=== PATIENT | female | born 1985 | race Two or more races ===

== ENCOUNTER 2018-04-21 16:16 | Emergency (ER) | payer BC ==
[~2018-04-21] VITALS: Ht 172.7 cm; Wt 108.9 kg
[2018-04-21] MEDS ORDERED: IRBE300T19 PO (16:30)
[2018-04-21] MEDS ORDERED: AMLO2.5T2 PO (16:30)
[2018-04-21] MEDS ORDERED: CITA10TA9 PO (16:31)
[2018-04-21] MEDS ORDERED: CHLO25TA2 PO (16:31)
[2018-04-21 16:53] LABS: BASOPHILS # (AUTO) 0.1 K/uL (0.0-8.0); BASOPHILS % (AUTO) 0.8 % (0.0-2.0); EOSINOPHILS # (AUTO) 0.1 K/uL (0.0-0.7); EOSINOPHILS % (AUTO) 1.4 % (0.0-7.0); HEMATOCRIT 42.3 % (31.2-41.9); LYMPHOCYTES # (AUTO) 2.1 K/uL (20.0-40.0); LYMPHOCYTES % (AUTO) 25.1 % (20.5-51.5); MEAN CORPUSCULAR HEMOGLOBIN 34.7 uug (24.7-32.8); MEAN CORPUSCULAR HGB CONC 36 g/dL (32.3-35.6); MEAN CORPUSCULAR VOLUME 96.7 fL (75.5-95.3); MONOCYTES # (AUTO) 0.8 K/uL (2.0-10.0); MONOCYTES % (AUTO) 10.2 % (0.0-11.0); NEUTROPHILS # (AUTO) 5.2 K/uL (1.8-8.9); NEUTROPHILS % (AUTO) 62.5 % (38.5-71.5); PLATELET COUNT (AUTO) 301 K/uL (179-408); RED BLOOD CELL COUNT(AUTO) 4.38 MIL/uL (3.63-4.92); WHITE BLOOD COUNT (AUTO) 8.2 K/uL (3.8-11.8)
--- NOTE | 2018-04-21 17:00 | NUR ---
PT IS IN ROOM #2A. DR LANDRY EVALUATED THE PT.
[2018-04-21 17:05] LABS: *BILIRUBIN,URIN NEGATIVE (NEGATIVE); *BLOOD, URINE Trace-intact (NEGATIVE); *COLOR,URINE YELLOW (YELLOW); *KETONES,URINE 2+ (NEGATIVE); *PROTEIN,URINE NEGATIVE (NEGATIVE); *UROBILINOGEN,URINE 0.2 E.U./dl (NORMAL); LEUKOCYTE ESTERASE ,URINE NEGATIVE (NEGATIVE); NITRITE, URINE NEGATIVE (NEGATIVE); PH,URINE 5.5 (5.0-8.0); UGLUCOSE 3+ (NEGATIVE)
[2018-04-21 17:06] LABS: HEMOGLOBIN 15.1 g/dL (10.9-14.3)
[2018-04-21 17:09] LABS: BILIRUBIN,DIRECT 0.2 mg/dL (0.0-0.2); BILIRUBIN,TOTAL 1.6 mg/dL (0.2-1.0); CREATININE 0.8 mg/dL (0.6-1.3); POTASSIUM 3.3 mmol/L (3.5-5.1); TOTAL PROTEIN, SERUM 7.1 g/dL (6.4-8.2)
[2018-04-21 17:11] LABS: *URINE HCG, QUAL NEGATIVE (NEGATIVE)
[2018-04-21 17:13] LABS: *CLARITY,URINE SLIGHTLY HAZY (CLEAR)
[2018-04-21 17:15] LABS: RBC,URINE 0-3 /HPF (0-3); SQUAMOUS EPITHELIAL CELL,UR MODERATE /HPF (NONE SEEN); WBC,URINE 0-3 /HPF (0-3); YEAST,URINE FEW /HPF (NONE SEEN)
[2018-04-21] MEDS: IV NORMAL SALINE 1000 ML BAG IV ONE (17:25)
[2018-04-21] MEDS ORDERED: INSULIN REGULAR, HUMAN 300 UNIT/3 ML VIAL ONE (17:37)
[2018-04-21] MEDS: INSULIN REGULAR, HUMAN 1,000 UNITS/10 ML VIAL IV ONE (17:39)
[2018-04-21 17:52] LABS: ABG BASE EXCESS 1.8 mmol/L; ABG PCO2 39.4 mmHg (35.0-45.0); ABG PH 7.438 (7.350-7.450); ABG PO2 76.2 mmHg (75.0-100.0); ABG SITE LEFT RADIAL; ABG TOTAL HEMOGLOBIN 14.2 G/dL (12.0-16.0); COHb 1.7 % (0.5-1.5); MetHb 0.4 % (0.0-1.5); O2Hb 93.8 % (94.0-97.0)
--- NOTE | 2018-04-21 18:56 | NUR ---
REPORT GIVEN TO [employer]AT[employer]ISHER RN.
--- NOTE | 2018-04-21 19:32 | NUR ---
GLUCOSE CHECK: [id number]
[2018-04-21] MEDS ORDERED: METFORMIN HCL 500 MG TABLET ONE (19:36)
[2018-04-21] MEDS: METFORMIN HCL 500 MG TABLET PO ONE (19:38)
[2018-04-21] MEDS ORDERED: DICYCLOMINE HCL 10 MG/5 ML UDC LIQ ONE (19:51)
[2018-04-21] MEDS: DICYCLOMINE HCL 10 MG/5 ML UDC LIQ PO ONE (19:52)
--- NOTE | 2018-04-21 20:00 | NUR ---
Patient discharged to home in stable conditon. Patient reported being pain free prior to discharge. Patient blood glucose trending downward prior to discharge. Written and verbal after care instructions given. Patient verbalizes understanding of instructions. Patient able to ambulate unassisted with a steady gait. Patient left with all personal belongings.
[2018-04-21 20:22] VITALS: BP 136/77
== END 2018-04-21 20:00 | disposition home or self-care (01) ==
LOC: ER 16:19
DX: R10.30 Lower abdominal pain, unspecified (principal); R73.9 Hyperglycemia, unspecified; I10 Essential (primary) hypertension; F17.200 Nicotine dependence, unspecified, uncomplicated
CPT/HCPCS: 36415; 36600; 76856; 84703; 85025; A4663; J1815; J7030